=== PATIENT | female | born 1960 | race African-American/Black ===

== ENCOUNTER 2017-06-14 17:50 | Observation (INO) | payer OTHER ==
[2017-06-14 18:14] VITALS: BMI 24.0
[2017-06-14] MEDS ORDERED: PREGABALIN 100 MG CAPSULE PO ONE (19:33)
[2017-06-14] MEDS ORDERED: CYCLOBENZAPRINE HCL 10 MG TABLET (FP) PO ONE (19:33)
[2017-06-14] MEDS ORDERED: ONDANSETRON 4 MG/2 ML VIAL IVPUSH ONE (19:33)
[2017-06-14 19:52] LABS: BASO % 0.3 % (0-2.0); HEMATOCRIT 37.7 % (32.4-45.2); HEMOGLOBIN 12.2 GM/dL (10.7-15.3); LYMPH % 3.1 % (8-40); MCH 29.6 pg (25.7-33.7); MCHC 32.2 g/dl (32.0-36.0); MEAN CELL VOLUME 91.8 fl (80-96); MONO % 3.4 % (3.8-10.2); NEUT % 93.2 % (42.8-82.8); PLATELET COUNT 398 K/MM3 (134-434); RBC 4.11 M/mm3 (3.60-5.2); RDW 12.9 % (11.6-15.6)
[2017-06-14] MEDS ORDERED: PREGABALIN 100 MG CAPSULE ONE (19:52)
[2017-06-14] MEDS ORDERED: ONDANSETRON 4 MG/2 ML VIAL ONE (19:52)
[2017-06-14] MEDS ORDERED: SODIUM CHLORIDE 1,000 ML IV STA (19:52)
[2017-06-14] MEDS ORDERED: CYCLOBENZAPRINE HCL 10 MG TABLET (FP) ONE (19:52)
[2017-06-14 20:19] LABS: ALBUMIN 4.5 g/dl (3.4-5.0); ANION GAP 12 (8-16); BILIRUBIN,TOTAL 0.6 mg/dL (0.2-1.0); BLOOD UREA NITROGEN 25 mg/dL (7-18); CALCIUM 8.1 mg/dL (8.5-10.1); CHLORIDE 99 mmol/L (98-107); CO2 25 mmol/L (21-32); CREATININE 0.9 mg/dL (0.55-1.02); GLUCOSE,RANDOM 172 mg/dL (74-106); POTASSIUM 3.5 mmol/L (3.5-5.1); SGOT/AST 40 U/L (15-37); SGPT/ALT 57 U/L (12-78); SODIUM 136 mmol/L (136-145)
[2017-06-14 20:22] LABS: ALK PHOS 118 U/L (45-117)
[2017-06-14 20:27] LABS: URINE APPEARANCE SLCLOUDY; URINE BILIRUBIN NEGATIVE (NEGATIVE); URINE BLOOD NEGATIVE (NEGATIVE); URINE COLOR AMBER; URINE GLUCOSE (UA) 2+ (NEGATIVE); URINE KETONE 2+ (NEGATIVE); URINE NITRITE NEGATIVE (NEGATIVE)
[2017-06-14 20:30] LABS: URINE LEUK ESTERASE 2+ (NEGATIVE); URINE PROTEIN 2+ (NEGATIVE)
[2017-06-14 20:32] LABS: EPI CELLS RARE /HPF (FEW); URINE MUCUS FEW
--- NOTE | 2017-06-14 20:32 | PDOC ---
Attending Attestation - Resident Resident Name: TiffanieJorge - ED Attending Attestation I have performed the following: I have examined & evaluated the patient, The case was reviewed & discussed with the resident, I agree w/resident's findings & plan - HPI HPI: 06/14/17 20:32 Pt comes with stomach virus - Physicial Exam PE: 06/14/17 22:06 Agree with resident exam. Pt has MSCP Pt appears weak. - Medical Decision Making 06/14/17 22:06 Trop +; she will have EKG, CXR, admission to tele. 06/15/17 00:07 She was given asa, plavix, metorpolol and started on a heparin drip. She has been admitted to tele unit. 06/15/17 00:07 Pt received rocephin for her UTI
--- NOTE | 2017-06-14 20:52 | PDOC ---
History of Present Illness - General Chief Complaint: Nausea/Vomiting Stated Complaint: NAUSEA,BACK PAIN Time Seen by Provider: 06/14/17 19:19 History Source: Patient - History of Present Illness Initial Comments: 06/14/17 20:33 57F with hx of HTN and DM2 presenting with nausea, vomiting, abdominal pain and leg cramps since this morning when she went to [employer] and forgot her medication. Since this morning, multiple episodes of abdominal pain which are new, the back pain and leg cramps are chronic for her. No headache, chest pain sob, dysuria. 06/14/17 20:54 Past History - Past Medical History Allergies/Adverse Reactions: Allergies Allergy/AdvReac Type Severity Reaction Status Date / Time codeine Allergy Verified 06/14/17 18:15 shellfish derived Allergy Swelling Verified 06/14/17 18:15 Home Medications: Ambulatory Orders Cephalexin Monohydrate [Keflex -] 500 mg PO BID #14 capsule 06/14/17 Cyclobenzaprine HCl 5 mg PO DAILY PRN 06/14/17 Liraglutide [Victoza -] 1.8 mg SQ DAILY@0700 06/14/17 Metformin HCl [Metformin HCl ER] 500 mg PO BID 06/14/17 Olmesartan Medoxomil [Benicar (Nf)] 40 mg PO DAILY 06/14/17 Pregabalin [Lyrica -] 50 mg PO BID 06/14/17 Ranitidine HCl 150 mg PO BID 06/14/17 COPD: No Diabetes: Yes HTN: Yes - Surgical History Gastric Stapling: No (GASTRIC BYPASS) - Suicide/Smoking/Psychosocial Hx Smoking History: Never smoked Hx Alcohol Use: No Drug/Substance Use Hx: No Review of Systems - Review of Systems Able to Perform ROS?: Yes Is the patient limited Monegasque proficient: No Constitutional: No: Symptoms Reported HEENTM: No: Symptoms Reported Respiratory: No: Symptoms reported Cardiac (ROS): No: Symptoms Reported ABD/GI: Yes: See HPI : No: Symptoms Reported Musculoskeletal: Yes: See HPI Integumentary: No: Symptoms Reported Neurological: No: Symptoms reported Endocrine: No: Symptoms Reported All Other Systems: Reviewed and Negative *Physical Exam - Vital Signs Last Vital Signs Temp Pulse Resp BP Pulse Ox 67 20 152/86 100 06/14/17 18:09 06/14/17 18:09 06/14/17 18:09 06/14/17 18:09 - Physical Exam General Appearance: Yes: Nourished, Appropriately Dressed. No: Apparent Distress HEENT: positive: EOMI, SUYAPA, Normal ENT Inspection Respiratory/Chest: positive: Lungs Clear, Normal Breath Sounds. negative: Chest Tender Cardiovascular: positive: Regular Rhythm, Regular Rate, S1, S2 Gastrointestinal/Abdominal: positive: Tender (all over abdomen), Soft Extremity: positive: Other (tense left leg) Neurologic: positive: Alert, Normal Mood/Affect, Normal Response ED Treatment Course - LABORATORY CBC & Chemistry Diagram: 06/14/17 19:45 06/14/17 19:45 - ADDITIONAL ORDERS Additional order review: Laboratory Results 06/14/17 20:22 Urine Color Isabel Urine Appearance Slcloudy Urine pH 6.0 Ur Specific [place] 1.031 Urine Protein 2+ H Urine Glucose (UA) 2+ H Urine Ketones 2+ H Urine Blood Negative Urine Nitrite Negative Urine Bilirubin Negative Urine Urobilinogen 2.0 H Ur Leukocyte Esterase 2+ H 06/14/17 19:45 RBC 4.11 MCV 91.8 MCHC 32.2 RDW 12.9 MPV 8.0 Neutrophils % 93.2 H Lymphocytes % 3.1 L Monocytes % 3.4 L Eosinophils % 0.0 Basophils % 0.3 - Medications Given in the ED: ED Medications Discontinued Medications Generic Name Dose Route Start Last Admin Trade Name Freq PRN Reason Stop Dose Admin Cyclobenzaprine HCl 10 mg 06/14/17 19:33 06/14/17 20:01 Flexeril - PO 06/14/17 19:34 10 mg ONCE ONE Administration Ondansetron HCl 4 mg 06/14/17 19:33 06/14/17 20:01 Zofran Injection IVPUSH 06/14/17 19:34 4 mg ONCE ONE Administration Pregabalin 200 mg 06/14/17 19:33 06/14/17 20:01 Lyrica - PO 06/14/17 19:34 200 mg ONCE ONE Administration Medical Decision Making - Medical Decision Making 06/14/17 21:01 Patient given her lyrica and cyclobenzaprine 06/14/17 21:03 urine positive for leuks est. Patient treated with keflex. feelzach manny. *DC/Admit/Observation/Transfer Diagnosis at time of Disposition: UTI (urinary tract infection) - Discharge Dispostion Disposition: HOME Admit: No - Prescriptions Prescriptions: Cephalexin Monohydrate [Keflex -] 500 mg PO BID #14 capsule - Referrals - Patient Instructions Printed Discharge Instructions: DI for Urinary Tract Infection (UTI) Additional Instructions: Come back to ER for any new, worsening or concerning symptoms. Use prescription as directed and follow up with your primary doctor within next 3-4 days. - Post Discharge Activity
[2017-06-14] MEDS ORDERED: CEPHALEXIN MONOHYDRATE 500 MG CAPSULE (UD) PO ONE (21:02)
[2017-06-14] MEDS ORDERED: CEPHALEXIN MONOHYDRATE 250 MG CAPSULE (FP) ONE (21:13)
[2017-06-14] MEDS ORDERED: CLOPIDOGREL BISULFATE 300 MG TABLET PO ONE (21:37)
[2017-06-14] MEDS ORDERED: ASPIRIN 81 MG CHEWABLE TABLETS PO ONE (21:37)
[2017-06-14] MEDS ORDERED: METOPROLOL TARTRATE 50 MG TABLET (FP) PO ONE (21:38)
[2017-06-14] MEDS ORDERED: METOPROLOL TARTRATE 25 MG TABLET (FP) ONE (21:53)
[2017-06-14] MEDS ORDERED: ASPIRIN 81 MG CHEWABLE TABLETS ONE (21:53)
[2017-06-14] MEDS ORDERED: CLOPIDOGREL BISULFATE 300 MG TABLET ONE (21:53)
[2017-06-14] MEDS ORDERED: HEPARIN NA (PORCINE) 5,000 UNITS/ML 1ML VIAL IVPUSH ONE (22:07)
[2017-06-14] MEDS ORDERED: HEPARIN NA (PORCINE) 5,000 UNITS/ML 1ML VIAL IVPUSH PRN (22:07)
[2017-06-14] MEDS ORDERED: HEPARIN SOD,PORK IN 0.45% NACL 25,000 UNIT/500 ML INFUS.BAG IVPB SCH (22:15)
[2017-06-14] MEDS ORDERED: HEPARIN NA (PORCINE) 5,000 UNITS/ML 1ML VIAL ONE (22:26)
--- NOTE | 2017-06-14 22:33 | PDOC ---
*Physical Exam - Vital Signs Last Vital Signs Temp Pulse Resp BP Pulse Ox 67 20 152/86 100 06/14/17 18:09 06/14/17 18:09 06/14/17 18:09 06/14/17 18:09 ED Treatment Course - LABORATORY CBC & Chemistry Diagram: 06/14/17 19:45 06/14/17 19:45 - ADDITIONAL ORDERS Additional order review: Laboratory Results 06/14/17 06/14/17 20:22 19:45 Sodium 136 Potassium 3.5 Chloride 99 Carbon Dioxide 25 Anion Gap 12 BUN 25 H Creatinine 0.9 Creat Clearance w eGFR > 60 Random Glucose 172 H Calcium 8.1 L Total Bilirubin 0.6 AST 40 H ALT 57 Alkaline Phosphatase 118 H Creatine Kinase 161 Creatine Kinase Index 1.3 CK-MB (CK-2) 2.156 Troponin I 0.07 H Total Protein 8.0 Albumin 4.5 Urine Color Isabel Urine Appearance Slcloudy Urine pH 6.0 Ur Specific [place] 1.031 Urine Protein 2+ H Urine Glucose (UA) 2+ H Urine Ketones 2+ H Urine Blood Negative Urine Nitrite Negative Urine Bilirubin Negative Urine Urobilinogen 2.0 H Ur Leukocyte Esterase 2+ H Urine WBC (Auto) 10 Urine RBC (Auto) 7 Ur Epithelial Cells Rare Urine Mucus Few 06/14/17 19:45 RBC 4.11 MCV 91.8 MCHC 32.2 RDW 12.9 MPV 8.0 Neutrophils % 93.2 H Lymphocytes % 3.1 L Monocytes % 3.4 L Eosinophils % 0.0 Basophils % 0.3 - Medications Given in the ED: ED Medications Discontinued Medications Generic Name Dose Route Start Last Admin Trade Name Kulwinder PRN Reason Stop Dose Admin Aspirin 162 mg 06/14/17 21:37 06/14/17 21:59 Asa - PO 06/14/17 21:38 162 mg ONCE ONE Administration Cephalexin HCl 500 mg 06/14/17 21:02 06/14/17 21:19 Keflex - PO 06/14/17 21:03 500 mg ONCE ONE Administration Clopidogrel Bisulfate 600 mg 06/14/17 21:37 06/14/17 21:59 Plavix - PO 06/14/17 21:38 600 mg ONCE ONE Administration Cyclobenzaprine HCl 10 mg 06/14/17 19:33 06/14/17 20:01 Flexeril - PO 06/14/17 19:34 10 mg ONCE ONE Administration Sodium Chloride 1,000 mls @ 1,000 mls/hr 06/14/17 19:52 06/14/17 20:01 Normal Saline - IV 06/14/17 20:51 1,000 mls/hr ASDIR STA Administration Metoprolol Tartrate 25 mg 06/14/17 21:38 06/14/17 21:59 Lopressor - PO 06/14/17 21:39 25 mg ONCE ONE Administration Ondansetron HCl 4 mg 06/14/17 19:33 06/14/17 20:01 Zofran Injection IVPUSH 06/14/17 19:34 4 mg ONCE ONE Administration Pregabalin 200 mg 06/14/17 19:33 06/14/17 20:01 Lyrica - PO 06/14/17 19:34 200 mg ONCE ONE Administration *DC/Admit/Observation/Transfer Diagnosis at time of Disposition: NSTEMI (non-ST elevated myocardial infarction) - Discharge Dispostion Admit: Yes - Prescriptions Prescriptions: Cephalexin Monohydrate [Keflex -] 500 mg PO BID #14 capsule - Referrals - Patient Instructions Additional Instructions: Come back to ER for any new, worsening or concerning symptoms. Use prescription as directed and follow up with your primary doctor within next 3-4 days. - Post Discharge Activity
--- NOTE | 2017-06-14 22:59 | HP ---
CHIEF COMPLAINT: N/v, back pain PCP: Non-staff HISTORY OF PRESENT ILLNESS: 57 yo woman w/ pmh of HTN, DM2, GERD who presents with abdominal pain, N/V earlier this afternoon in the setting of persistent, intermittent atypical chest pain for the past 3 months. Pt endorses a significant pmh of "enlarged heart" and atypical chest pain for the past 2-3 months. Pt describes the pain as sharp, occurring in the R subcostal region with radiation to midscapular region, not associated with exercise, position or feeding. Pt states this morning she felt a new L sided CP similar to the R-sided one previously described when she was at [employer]. She states she felt lightheaded at the time as well. She states that she took tylenol and felt some symptomatic relief. After [employer], the pt states she took a train home and began having severe nausea and abdominal pain. At home, she vomitted multiple times and decided to come to the ED. Pt denies any fever/chills, FORREST, vision changes, chest tightness , SOB, dyspnea, PND, [place] or diarrhea/constipation. Pt also states she has been experiencing burning on urination recently, but has never been diagnosed with a UTI; denies any hematuria or pyuria. Pt states she had a stress test early last year, which was normal and has received an ECHO sometime in the last few months , which was normal. She currently takes no cardiac medication. In addition, pt has BL chronic leg cramping for which she takes cyclobenzaprine and sees a neurologist regularly. Her commercial director is Dr. Eller. Her family hx is significant for father with 5 prior MIs, passing away in his later 50s, as well as a sister who two month later from an [place]. Pt denies any hx of drug use or anxiety attacks. ER course was notable for: (1)WBC 15, left shift (2)UA + leuk esterase (3)Trop 0.07 Recent Travel: None PAST MEDICAL HISTORY: DM2 HTN GERD Chronic leg pain PAST SURGICAL HISTORY: Gastric Bypass Social History: Smoking: No Alcohol: No Drugs: No Family History: [place] Allergies codeine Allergy (Verified 06/14/17 18:15) shellfish derived Allergy (Verified 06/14/17 18:15) Swelling HOME MEDICATIONS: Home Medications Medication Instructions Recorded Cephalexin Monohydrate [Keflex -] 500 mg PO BID #14 capsule 06/14/17 Cyclobenzaprine HCl 5 mg PO DAILY PRN 06/14/17 Liraglutide [Victoza -] 1.8 mg SQ DAILY@0700 06/14/17 Metformin HCl [Metformin HCl ER] 500 mg PO BID 06/14/17 Olmesartan Medoxomil [Benicar (Nf)] 40 mg PO DAILY 06/14/17 Pregabalin [Lyrica -] 50 mg PO BID 06/14/17 Ranitidine HCl 150 mg PO BID 06/14/17 REVIEW OF SYSTEMS CONSTITUTIONAL: Absent: fever, chills, diaphoresis, generalized weakness, malaise, loss of appetite, weight change HEENT: Absent: rhinorrhea, nasal congestion, throat pain, throat swelling, difficulty swallowing, mouth swelling, ear pain, eye pain, visual changes CARDIOVASCULAR: chest pain Absent: syncope, palpitations, irregular heart rate, lightheadedness, peripheral edema RESPIRATORY: Absent: cough, shortness of breath, dyspnea with exertion, orthopnea, wheezing, stridor, hemoptysis GASTROINTESTINAL: abdominal pain, nausea, vomiting Absent: abdominal distension, diarrhea, constipation, melena, hematochezia GENITOURINARY: Absent: dysuria, frequency, urgency, hesitancy, hematuria, flank pain, genital pain MUSCULOSKELETAL: Leg pain, back pain Absent: myalgia, arthralgia, joint swelling, neck pain SKIN: Absent: rash, itching, pallor HEMATOLOGIC/IMMUNOLOGIC: Absent: easy bleeding, easy bruising, lymphadenopathy, frequent infections ENDOCRINE: Absent: unexplained weight gain, unexplained weight loss, heat intolerance, cold intolerance NEUROLOGIC: Absent: headache, focal weakness or paresthesias, dizziness, unsteady gait, seizure, mental status changes, bladder or bowel incontinence PSYCHIATRIC: Absent: anxiety, depression, suicidal or homicidal ideation, hallucinations. PHYSICAL EXAMINATION Vital Signs - 24 hr 06/14/17 18:09 Pulse Rate 67 Respiratory 20 Rate Blood Pressure 152/86 O2 Sat by Pulse 100 Oximetry (%) GENERAL: Awake, alert, and fully oriented, in no acute distress. HEAD: Normal with no signs of trauma. EYES: Pupils equal, round and reactive to light, extraocular movements intact, sclera anicteric, conjunctiva clear. No lid lag. EARS, NOSE, THROAT: Ears normal, nares patent, oropharynx clear without exudates. Moist mucous membranes. NECK: Normal range of motion, supple without lymphadenopathy, JVD, or masses. LUNGS: Breath sounds equal, clear to auscultation bilaterally. No wheezes, and no crackles. No accessory muscle use. HEART: Pain on palpation of R subcostal region, 2-3cm lateral to RLSB. Regular rate and rhythm, normal S1 and S2 without murmur, rub or gallop. ABDOMEN: +suprapubic tenderness. Soft, not distended, normoactive bowel sounds, no guarding, no rebound, no masses. No hepatomegaly or splenomegaly. MUSCULOSKELETAL: Normal range of motion at all joints. No bony deformities or tenderness. No CVA tenderness. UPPER EXTREMITIES: 2+ pulses, warm, well-perfused. No cyanosis. No clubbing. No peripheral edema. LOWER EXTREMITIES: 2+ pulses, warm, well-perfused. No calf tenderness. No peripheral edema. NEUROLOGICAL: Cranial nerves II-XII intact. Normal speech. Normal gait. PSYCHIATRIC: Cooperative. Good eye contact. Appropriate mood and affect. SKIN: Warm, dry, normal turgor, no rashes or lesions noted, normal capillary refill. Laboratory Results - last 24 hr CBC, [facility] 06/14/17 19:45 06/14/17 19:45 06/14/17 06/14/17 06/14/17 19:45 19:45 20:22 WBC 15.0 H RBC 4.11 Hgb 12.2 Hct 37.7 MCV 91.8 MCH 29.6 MCHC 32.2 RDW 12.9 Plt Count 398 MPV 8.0 Neutrophils % 93.2 H Lymphocytes % 3.1 L Monocytes % 3.4 L Eosinophils % 0.0 Basophils % 0.3 Sodium 136 Potassium 3.5 Chloride 99 Carbon Dioxide 25 Anion Gap 12 BUN 25 H Creatinine 0.9 Creat Clearance w eGFR > 60 Random Glucose 172 H Calcium 8.1 L Total Bilirubin 0.6 AST 40 H ALT 57 Alkaline Phosphatase 118 H Creatine Kinase 161 Creatine Kinase Index 1.3 CK-MB (CK-2) 2.156 Troponin I 0.07 H Total Protein 8.0 Albumin 4.5 Urine Color Isabel Urine Appearance Slcloudy Urine pH 6.0 Ur Specific [place] 1.031 Urine Protein 2+ H Urine Glucose (UA) 2+ H Urine Ketones 2+ H Urine Blood Negative Urine Nitrite Negative Urine Bilirubin Negative Urine Urobilinogen 2.0 H Ur Leukocyte Esterase 2+ H Urine WBC (Auto) 10 Urine RBC (Auto) 7 Ur Epithelial Cells Rare Urine Mucus Few EKG - NSR, NAD, Rate 83, QTC 528. Q-waves in I, AVLs w/ TWIs. No CXR ASSESSMENT/PLAN: 57 yo woman w/ pmh of HTN, DM2 who presents with N/V, abdominal pain since this AM in the setting of intermittent anterior chest pain for the past three months. Now found with q waves/TWIs on EKG in lateral leads and elevated trops suggestive of NSTEMI. #NSTEMI - Trop 0.07; EKG with Q-wave, TWIs in AVL/lead I - d/c heparin gtt - Trend trops - Consider cardiology consult if trops uptrending - Nitroglycerin prn - Echo - Tylenol for pain control - O2 tx PRN; maintain O2 sat >97% - ASA 81mg - BB, CARL-I, Statin as outpt - Will require repeat stress test as outpt - Serial EKGs - CXR - IVFs #UTI - WBC ~15, + leuk esterase on UA - f/u urine cultures - Rocephin 1mg IV qD - Trend WBC, fever #HTN - C/w home benicar #DM2 - Hold metformin as cardiosuppresive - C/w victoza -lyrica for neuropathy - ISS - BGM Q4h - A1C #Chronic leg pain - c/w home Cyclobenzaprine #GERD -Ranitidine PPX Heparin subq Ranitidine FEN NS 75cc/hr Daily BMPs Diabetic diet Plan discussed with attending, Dr. Kyle Gallagher, PGY1 Visit type - Emergency Visit Emergency Visit: Yes ED Registration Date: 06/14/17 Care time: The patient presented to the Emergency Department on the above date and was hospitalized for further evaluation of their emergent condition. - New Patient This patient is new to me today: Yes Date on this admission: 06/15/17 - Critical Care Critical Care patient: No
[2017-06-14 23:08] LABS: INR 1.04 (0.82-1.09); PROTHROMBIN TIME (PATIENT) 11.8 SEC (9.98-11.88)
[2017-06-15] MEDS ORDERED: METOCLOPRAMIDE HCL INJECTION 10 MG/2 ML VIAL IVPUSH PRN (00:14)
[2017-06-15] MEDS ORDERED: SODIUM CHLORIDE 1,000 ML IV SCH (00:15)
--- NOTE | 2017-06-15 00:17 | PN ---
Teaching Attending Note Name of Resident: Armando Gallagher ATTENDING PHYSICIAN STATEMENT I saw and evaluated the patient. Chart, data,imaging reviewed. I reviewed the resident's note and discussed the case with the resident. I agree with the resident's findings and plan as documented. SUBJECTIVE: 57F with hx of HTN, DM , gastric bypass in 2012, extensive family Hx of cardiac disease, former smoker with atypical chest pain not related to exercise for the last 2 months She reports nausea and vomiting starting 06/14 in the morning, unrelated to any particular event. She has has recent cardiac stress test and echocardiogram with Dr. Eller that she reported as normal. pt given clopidogrel , ASA, heparin drip in ER. Pt also c/o some dysuria. Denied any shortness of breath. OBJECTIVE: Last Vital Signs Temp Pulse Resp BP Pulse Ox 67 20 152/86 100 06/14/17 18:09 06/14/17 18:09 06/14/17 18:09 06/14/17 18:09 General - NAD, aaox3 HEENT- at, nc, moist ora mucosa neck- supple, no jvd or masses cv - s1+s2+ RRR chest- anterior chest pain reproducible Ext-no LE edema HEART score - 5 EKG -nonspecific t wave inversions , nsr, prolonged qtc Abnormal Lab Results 06/14/17 06/14/17 06/14/17 19:45 19:45 20:22 WBC 15.0 H Neutrophils % 93.2 H Lymphocytes % 3.1 L Monocytes % 3.4 L BUN 25 H Random Glucose 172 H Calcium 8.1 L AST 40 H Alkaline Phosphatase 118 H Troponin I 0.07 H Urine Protein 2+ H Urine Glucose (UA) 2+ H Urine Ketones 2+ H Urine Urobilinogen 2.0 H Ur Leukocyte Esterase 2+ H ASSESSMENT AND PLAN: #Atypical chest pain in a 57yo woman with moderate risk factors with acute onset of nausea, vomiting x 1 day. I do not suspect active IA at this time given history of negative cardiac stress test, and that pain is reproducible. May be musculoskeletal in nature. -admit to observation/telemetry -CXR -d/c clopidogrel, heparin drip -c/w ASA -statin -trend troponin -outpatient cardiac stress test and transthoracic echo #Nausea/vomiting - may be related to gastroenteritis -IV fluid hydration -reglan 10mg IV prn if nausea or vomiting #Cystitis -send urine culture -ceftriaxone 1g IV q24hrs #DVT -heparin sc
[2017-06-15] MEDS ORDERED: ACETAMINOPHEN 325 MG TABLET (FP) PO PRN (01:04)
[2017-06-15] MEDS ORDERED: HEPARIN NA (PORCINE) 5,000 UNITS/ML 1ML VIAL SQ SCH (02:00)
[2017-06-15] MEDS: INSULIN SLIDING SCALE (NOVOLOG) 1 VIAL SQ SCH ×3 (02:02→10:05)
[2017-06-15] MEDS ORDERED: CYCLOBENZAPRINE HCL 10 MG TABLET (FP) PO PRN (06:19)
[2017-06-15] MEDS ORDERED: LIRAGLUTIDE 0.6 MG/0.1 ML PEN.INJCTR SQ SCH (07:00)
[2017-06-15 07:07] VITALS: TEMP 97.6
[2017-06-15 08:32] LABS: CHLORIDE 104 mmol/L (98-107); POTASSIUM 4.8 mmol/L (3.5-5.1); SODIUM 139 mmol/L (136-145)
[2017-06-15 08:51] LABS: ALBUMIN 3.2 g/dl (3.4-5.0); ALK PHOS 95 U/L (45-117); ANION GAP 11 (8-16); BILIRUBIN,TOTAL 0.7 mg/dL (0.2-1.0); BLOOD UREA NITROGEN 23 mg/dL (7-18); CALCIUM 8.4 mg/dL (8.5-10.1); CO2 24 mmol/L (21-32); CREATININE 0.7 mg/dL (0.55-1.02); GLUCOSE,RANDOM 80 mg/dL (74-106); MAGNESIUM 2.2 mg/dL (1.8-2.4); PHOSPHOROUS 4.4 mg/dL (2.5-4.9); SGOT/AST 41 U/L (15-37); SGPT/ALT 45 U/L (12-78); TOT PROT 6.8 g/dl (6.4-8.2)
[2017-06-15 09:12] LABS: INR 1.1 (0.82-1.09); PROTHROMBIN TIME (PATIENT) 12.4 SEC (9.98-11.88)
[2017-06-15 09:24] LABS: BASO % 0.4 % (0-2.0); HEMOGLOBIN 10.8 GM/dL (10.7-15.3); LYMPH % 17.2 % (8-40); MCH 29.7 pg (25.7-33.7); MCHC 31.8 g/dl (32.0-36.0); MEAN CELL VOLUME 93.5 fl (80-96); MEAN PLT VOLUME 8.3 fl (7.5-11.1); NEUT % 70.4 % (42.8-82.8); PLATELET COUNT 350 K/MM3 (134-434); RBC 3.63 M/mm3 (3.60-5.2); RDW 12.7 % (11.6-15.6); WHITE BLOOD COUNT 9.7 K/mm3 (4.0-10.0)
[2017-06-15] MEDS ORDERED: PREGABALIN 50 MG CAPSULE ONE (09:42)
[2017-06-15] MEDS ORDERED: VALSARTAN 80 MG TABLET (UD) ONE (09:42)
[2017-06-15] MEDS ORDERED: RANITIDINE HCL 150 MG TABLET (FP) PO SCH (10:00)
[2017-06-15] MEDS ORDERED: VALSARTAN 160 MG TABLET (UD) PO SCH (10:00)
[2017-06-15] MEDS ORDERED: CEFTRIAXONE 1 G/50 ML PREMIX 50 ML IVPB SCH (10:00)
[2017-06-15] MEDS ORDERED: CEFTRIAXONE 1 GM in DEXTROSE 5%-WATER - 50 ML IVPB SCH (10:00)
[2017-06-15] MEDS ORDERED: PREGABALIN 50 MG CAPSULE PO SCH (10:00)
--- NOTE | 2017-06-15 10:25 | EKG ---
Test Reason : Blood Pressure : / mmHG Vent. Rate : 065 BPM Atrial Rate : 065 BPM P-R Int : 194 ms QRS Dur : 112 ms QT Int : 426 ms P-R-T Axes : 047 -14 115 degrees QTc Int : 443 ms NORMAL SINUS RHYTHM LEFT VENTRICULAR HYPERTROPHY WITH REPOLARIZATION ABNORMALITY POSSIBLE LATERAL INFARCT (CITED ON OR BEFORE 14-JUN-2017) ABNORMAL ECG WHEN COMPARED WITH ECG OF 14-JUN-2017 21:51, CRITERIA FOR SEPTAL INFARCT ARE NO LONGER PRESENT Confirmed by AMADA BERGMAN MD ([id number]) on 06/15/2017 10:25:15 AM Referred By: Confirmed By:AMADA BERGMAN MD
--- NOTE | 2017-06-15 10:32 | EKG ---
Test Reason : Blood Pressure : / mmHG Vent. Rate : 083 BPM Atrial Rate : 083 BPM P-R Int : 154 ms QRS Dur : 102 ms QT Int : 450 ms P-R-T Axes : 043 001 104 degrees QTc Int : 528 ms NORMAL SINUS RHYTHM MINIMAL VOLTAGE CRITERIA FOR LVH, MAY BE NORMAL VARIANT SEPTAL INFARCT , AGE UNDETERMINED POSSIBLE LATERAL INFARCT , AGE UNDETERMINED PROLONGED QT ABNORMAL ECG NO PREVIOUS ECGS AVAILABLE Confirmed by AMADA BERGMAN MD ([id number]) on 06/15/2017 10:31:52 AM Referred By: Confirmed By:AMADA BERGMAN MD
--- NOTE | 2017-06-15 12:31 | DS ---
Physical Exam: SUBJECTIVE: Patient seen and examined. Nausea resolved. tolerated most of breakfast. no vomiting episodes today. has been experiecing dysuria and urinary hesitancy for the past week. Denies CP, SOB, fever, chills, C/D. OBJECTIVE: Vital Signs Period Temp Pulse Resp BP Sys/Doty Pulse Ox Last 24 Hr 97.6 F 61-86 16-20 107-152/65-86 96-100 PHYSICAL EXAM GENERAL: The patient is awake, alert, and fully oriented, in no acute distress. HEAD: Normal with no signs of trauma. EYES: PERRL, extraocular movements intact, sclera anicteric, conjunctiva clear. ENT: Ears normal, nares patent, oropharynx clear without exudates, moist mucous membranes. NECK: Trachea midline, full range of motion, supple. LUNGS: Breath sounds equal, clear to auscultation bilaterally, no wheezes, no crackles, no accessory muscle use. HEART: Regular rate and rhythm, S1, S2 without murmur, rub or gallop. ABDOMEN: Soft, nontender, nondistended, normoactive bowel sounds, no guarding, no rebound, no hepatosplenomegaly, no masses. NO CVA tenderness EXTREMITIES: 2+ pulses, warm, well-perfused, no edema. NEUROLOGICAL: Cranial nerves II through XII grossly intact. Normal speech, gait not observed. PSYCH: Normal mood, normal affect. SKIN: Warm, dry, normal turgor, no rashes or lesions noted. LABS Laboratory Results - last 24 hr 06/14/17 06/14/17 06/14/17 19:45 19:45 20:16 WBC 15.0 H RBC 4.11 Hgb 12.2 Hct 37.7 MCV 91.8 MCH 29.6 MCHC 32.2 RDW 12.9 Plt Count 398 MPV 8.0 Neutrophils % 93.2 H Lymphocytes % 3.1 L Monocytes % 3.4 L Eosinophils % 0.0 Basophils % 0.3 PT with INR INR PTT (Actin FS) Sodium 136 Potassium 3.5 Chloride 99 Carbon Dioxide 25 Anion Gap 12 BUN 25 H Creatinine 0.9 Creat Clearance w eGFR > 60 POC Glucometer [phone] Random Glucose 172 H Calcium 8.1 L Phosphorus Magnesium Total Bilirubin 0.6 AST 40 H ALT 57 Alkaline Phosphatase 118 H Creatine Kinase 161 Creatine Kinase Index 1.3 CK-MB (CK-2) 2.156 Troponin I 0.07 H Total Protein 8.0 Albumin 4.5 Urine Color Urine Appearance Urine pH Ur Specific [place] Urine Protein Urine Glucose (UA) Urine Ketones Urine Blood Urine Nitrite Urine Bilirubin Urine Urobilinogen Ur Leukocyte Esterase Urine WBC (Auto) Urine RBC (Auto) Ur Epithelial Cells Urine Mucus 06/14/17 06/14/17 06/15/17 20:22 22:48 01:59 WBC RBC Hgb Hct MCV MCH MCHC RDW Plt Count MPV Neutrophils % Lymphocytes % Monocytes % Eosinophils % Basophils % PT with INR 11.80 INR 1.04 PTT (Actin FS) Sodium Potassium Chloride Carbon Dioxide Anion Gap BUN Creatinine Creat Clearance w eGFR POC Glucometer [phone] Random Glucose Calcium Phosphorus Magnesium Total Bilirubin AST ALT Alkaline Phosphatase Creatine Kinase Creatine Kinase Index CK-MB (CK-2) Troponin I Total Protein Albumin Urine Color Isabel Urine Appearance Slcloudy Urine pH 6.0 Ur Specific [place] 1.031 Urine Protein 2+ H Urine Glucose (UA) 2+ H Urine Ketones 2+ H Urine Blood Negative Urine Nitrite Negative Urine Bilirubin Negative Urine Urobilinogen 2.0 H Ur Leukocyte Esterase 2+ H Urine WBC (Auto) 10 Urine RBC (Auto) 7 Ur Epithelial Cells Rare Urine Mucus Few 06/15/17 06/15/17 06/15/17 04:10 06:29 07:30 WBC RBC Hgb Hct MCV MCH MCHC RDW Plt Count MPV Neutrophils % Lymphocytes % Monocytes % Eosinophils % Basophils % PT with INR INR PTT (Actin FS) Sodium 139 Potassium 4.8 Chloride 104 Carbon Dioxide 24 Anion Gap 11 BUN 23 H Creatinine 0.7 Creat Clearance w eGFR > 60 POC Glucometer 71.12481 Random Glucose 80 Calcium 8.4 L Phosphorus 4.4 Magnesium 2.2 Total Bilirubin 0.7 AST 41 H ALT 45 D Alkaline Phosphatase 95 D Creatine Kinase Creatine Kinase Index CK-MB (CK-2) Troponin I 0.07 H 0.08 H Total Protein 6.8 Albumin 3.2 L D Urine Color Urine Appearance Urine pH Ur Specific [place] Urine Protein Urine Glucose (UA) Urine Ketones Urine Blood Urine Nitrite Urine Bilirubin Urine Urobilinogen Ur Leukocyte Esterase Urine WBC (Auto) Urine RBC (Auto) Ur Epithelial Cells Urine Mucus 06/15/17 06/15/17 06/15/17 08:36 08:36 08:36 WBC 9.7 D RBC 3.63 Hgb 10.8 D Hct 34.0 MCV 93.5 MCH 29.7 MCHC 31.8 L RDW 12.7 Plt Count 350 MPV 8.3 Neutrophils % 70.4 D Lymphocytes % 17.2 D Monocytes % 10.0 D Eosinophils % 2.0 D Basophils % 0.4 PT with INR 12.40 H INR 1.10 PTT (Actin FS) 69.7 H Sodium Potassium Chloride Carbon Dioxide Anion Gap BUN Creatinine Creat Clearance w eGFR POC Glucometer Random Glucose Calcium Phosphorus Magnesium Total Bilirubin AST ALT Alkaline Phosphatase Creatine Kinase Creatine Kinase Index CK-MB (CK-2) Troponin I Total Protein Albumin Urine Color Urine Appearance Urine pH Ur Specific [place] Urine Protein Urine Glucose (UA) Urine Ketones Urine Blood Urine Nitrite Urine Bilirubin Urine Urobilinogen Ur Leukocyte Esterase Urine WBC (Auto) Urine RBC (Auto) Ur Epithelial Cells Urine Mucus 06/15/17 11:46 WBC RBC Hgb Hct MCV MCH MCHC RDW Plt Count MPV Neutrophils % Lymphocytes % Monocytes % Eosinophils % Basophils % PT with INR INR PTT (Actin FS) Sodium Potassium Chloride Carbon Dioxide Anion Gap BUN Creatinine Creat Clearance w eGFR POC Glucometer [phone] Random Glucose Calcium Phosphorus Magnesium Total Bilirubin AST ALT Alkaline Phosphatase Creatine Kinase Creatine Kinase Index CK-MB (CK-2) Troponin I Total Protein Albumin Urine Color Urine Appearance Urine pH Ur Specific [place] Urine Protein Urine Glucose (UA) Urine Ketones Urine Blood Urine Nitrite Urine Bilirubin Urine Urobilinogen Ur Leukocyte Esterase Urine WBC (Auto) Urine RBC (Auto) Ur Epithelial Cells Urine Mucus HOSPITAL COURSE: Date of Admission:06/14/17 Date of Discharge: 06/15/17 Admitting diagnosis: UTI, abnormal EKG Pre hospital course 57 yo woman w/ pmh of HTN, DM2, GERD who presents with abdominal pain, N/V earlier this afternoon in the setting of persistent, intermittent atypical chest pain for the past 3 months. Pt endorses a significant pmh of "enlarged heart" and atypical chest pain for the past 2-3 months. Pt describes the pain as sharp, occurring in the R subcostal region with radiation to midscapular region, not associated with exercise, position or feeding. Pt states this morning she felt a new L sided CP similar to the R-sided one previously described when she was at [facility]. She states she felt lightheaded at the time as well. She states that she took tylenol and felt some symptomatic relief. After [facility], the pt states she took a train home and began having severe nausea and abdominal pain. At home, she vomitted multiple times and decided to come to the ED. Pt denies any fever/chills, FORREST, vision changes, chest tightness , SOB, dyspnea, PND, [place] or diarrhea/constipation. Pt also states she has been experiencing burning on urination recently, but has never been diagnosed with a UTI; denies any hematuria or pyuria. Pt states she had a stress test early last year, which was normal and has received an ECHO sometime in the last few months , which was normal. She currently takes no cardiac medication. In addition, pt has BL chronic leg cramping for which she takes cyclobenzaprine and sees a neurologist regularly. 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 Her family hx is significant for father with 5 prior MIs, passing away in his later 50s, as well as a sister who two month later from an [place]. Pt denies any hx of drug use or anxiety attacks. Subsequent hospital course Tele observation. troponin ws noted to be 0.07 in the Er and was asa/plavix loaded and started on heparin ggt. EKG showed TWI in lead I and aVL. UA was + UTI and started on ceftriaxone. symptoms resolved. tolerated diet. cardiac enzymes trended (0.07-0.07 and 0.08) spoke with marine electrician apprentice, Dr Melchor Eller. Had Normal persantine Stress test in August 2016. Echo showing LVH, baseline EKG same as here. discussed case and agreed likely not cardiac. agreed with plan. d/ c pt on abx to complete 1 week course. Minutes to complete discharge: 40 Discharge Summary Reason For Visit: NON-ST ELEVATION (NSTEMI) MYCARDIAL INFRACTION Current Active Problems UTI (urinary tract infection) (Acute) EKG, abnormal (Chronic) - Instructions Diet, Activity, Other Instructions: You were admitted to the hospital due to your symptoms. You were found to have a UTI and were started on medications. Continue to take this medication tomorrow (you received your first dose in the hospital today). Take until completed even if your symptoms resolve. Follow up with your primary care doctor this week Follow up with Dr Eller at your next regular scheduled appointment in August. You can make an earlier appointment if you desire Return to the Er if you develop chest pain or fever (Temp >101) Referrals: STAFF,NOT ON [Primary Care Provider] - - Home Medications Comprehensive Discharge Medication List: Ambulatory Orders Cephalexin Monohydrate [Keflex -] 500 mg PO BID #14 capsule 06/14/17 Cyclobenzaprine HCl 5 mg PO DAILY PRN 06/14/17 Liraglutide [Victoza -] 1.8 mg SQ DAILY@0700 06/14/17 Metformin HCl [Metformin HCl ER] 500 mg PO BID 06/14/17 Olmesartan Medoxomil [Benicar (Nf)] 40 mg PO DAILY 06/14/17 Pregabalin [Lyrica -] 50 mg PO BID 06/14/17 Ranitidine HCl 150 mg PO BID 06/14/17 This patient is new to me today: Yes Date on this admission: 06/15/17 Emergency Visit: Yes ED Registration Date: 06/14/17 Care time: The patient presented to the Emergency Department on the above date and was hospitalized for further evaluation of their emergent condition. Critical Care patient: No - Discharge Referral Referred to [facility] No
[2017-06-15 13:52] VITALS: BP 126/75; PULSE 63
== END 2017-06-15 13:58 | disposition home or self-care (01) ==
LOC: JER 17:50 → JERBED 22:33
PROVIDERS: ADMIT Internal Medicine; ATTEND Internal Medicine
PROC: 3E033GC Introduction of Other Therapeutic Substance into Peripheral Vein, Percutaneous Approach (ICD-10-PCS; principal; 2017-06-14)
PROC: 3E013GC Introduction of Other Therapeutic Substance into Subcutaneous Tissue, Percutaneous Approach (ICD-10-PCS; 2017-06-14)
PROC: 3E0337Z Introduction of Electrolytic and Water Balance Substance into Peripheral Vein, Percutaneous Approach (ICD-10-PCS; 2017-06-14)
DX: I21.4 Non-ST elevation (NSTEMI) myocardial infarction (principal); N39.0 Urinary tract infection, site not specified; I10 Essential (primary) hypertension; E11.9 Type 2 diabetes mellitus without complications; K21.9 Gastro-esophageal reflux disease without esophagitis; M79.605 Pain in left leg; M79.604 Pain in right leg; G89.29 Other chronic pain; R94.31 Abnormal electrocardiogram [ECG] [EKG]; Z91.013 Allergy to seafood; Z88.5 Allergy status to narcotic agent; Z79.84 Long term (current) use of oral hypoglycemic drugs; Z98.84 Bariatric surgery status; Z87.891 Personal history of nicotine dependence
CPT/HCPCS: 36415; 71045-TC; 71046-TC; 80053; 81003; 81015; 82550; 82553; 82962; 83735; 84100; 84484; 85025; 85610; 85730; 87086; 93005; 93010; 93306-TC; 99285-25; G0378; J1644

== ENCOUNTER 2019-02-13 01:16 | Observation (INO) | payer OTHER | END 2019-02-15 13:55 | disposition home or self-care (01) | LOC: JER 01:16 → JERBED 07:40 → J4S 10:09 → JERBED 10:09 → J4S 07:40 ==

== ENCOUNTER 2020-09-28 10:03 | Emergency (ER) | payer OTHER ==
[2020-09-28] MEDS ORDERED: LACTATED RINGERS SOLUTION 1000 ML INFUS.BAG IV ONE ×2 (10:33→14:04)
[2020-09-28] MEDS ORDERED: FAMOTIDINE 20 MG/50 ML IVPB 20 MG/50 ML MG IVPB ONE ×2 (10:34→10:48)
[2020-09-28] MEDS ORDERED: ONDANSETRON 4 MG/2 ML VIAL IVPUSH ONE (10:34)
[2020-09-28] MEDS ORDERED: ACETAMINOPHEN 1000 MG/100 ML VIAL (NON FORMULARY) IVPB ONE (10:35)
[2020-09-28] MEDS ORDERED: morphine CARPU-JECT 4 MG/1 ML DISP.SYRIN IVPUSH ONE ×2 (10:40→11:13)
[2020-09-28 10:45] VITALS: BMI 26.9
[2020-09-28] MEDS ORDERED: ACETAMINOPHEN INJECTION 100 ML IVPB ONE (10:48)
[2020-09-28] MEDS ORDERED: morphine SULFATE 4 MG/ML VIAL ONE ×2 (10:48→13:32)
[2020-09-28] MEDS ORDERED: ONDANSETRON 4 MG/2 ML VIAL ONE (10:50)
[2020-09-28 11:11] LABS: BASO % 1.2 % (0-2.0); EOS % 1.5 % (0-4.5); HEMATOCRIT 32.7 % (32.4-45.2); HEMOGLOBIN 10.6 GM/dL (10.7-15.3); LYMPH % 29.5 % (8-40); MCH 29.6 pg (25.7-33.7); MCHC 32.6 g/dl (32.0-36.0); MEAN CELL VOLUME 91.1 fl (80-96); MEAN PLT VOLUME 8.3 fl (7.5-11.1); MONO % 6.1 % (3.8-10.2); NEUT % 61.7 % (42.8-82.8); PLATELET COUNT 411 K/MM3 (134-434); RBC 3.59 M/mm3 (3.60-5.2); RDW 13.5 % (11.6-15.6); WHITE BLOOD COUNT 4.6 K/mm3 (4.0-10.0)
[2020-09-28 11:18] LABS: INR 0.94 (0.83-1.09); PROTHROMBIN TIME (PATIENT) 11.6 SEC (9.7-13.0)
[2020-09-28 11:21] LABS: ACTIVATED PTT 29.6 SECONDS (25.2-36.5)
[2020-09-28 11:28] LABS: ALBUMIN 3.8 g/dl (3.4-5.0); BLOOD UREA NITROGEN 20.6 mg/dL (7-18); CALCIUM 9.4 mg/dL (8.5-10.1)
[2020-09-28 11:30] LABS: CREATININE 0.9 mg/dL (0.55-1.3)
[2020-09-28 11:31] LABS: BILIRUBIN,TOTAL 0.7 mg/dL (0.2-1)
[2020-09-28 11:33] LABS: TOT PROT 7.7 g/dl (6.4-8.2)
[2020-09-28 11:34] LABS: LACTIC ACID 4.8 mmol/L (0.4-2.0)
[2020-09-28] MEDS ORDERED: HYDROmorphone HCL CARPU-JECT 2 MG/1 ML DISP.SYRIN IVPUSH ONE (14:44)
[2020-09-28] MEDS ORDERED: HYDROmorphone HCl 2 MG/ML VIAL ONE (14:54)
[2020-09-28] MEDS ORDERED: LACTATED RINGERS SOLUTION 1,000 ML/1,000 ML INFUS.BAG IV SCH (15:00)
[2020-09-28 16:34] LABS: LACTIC ACID 4.3 mmol/L (0.4-2.0)
[2020-09-28 16:55] VITALS: BP 146/62; PULSE 73; TEMP 97.1
== END 2020-09-28 18:00 | disposition short-term general hospital (02) ==
LOC: JER 10:03
PROC: 3E033NZ Introduction of Analgesics, Hypnotics, Sedatives into Peripheral Vein, Percutaneous Approach (ICD-10-PCS; principal; 2020-09-28)
PROC: 3E033GC Introduction of Other Therapeutic Substance into Peripheral Vein, Percutaneous Approach (ICD-10-PCS; 2020-09-28)
DX: K56.609 Unspecified intestinal obstruction, unspecified as to partial versus complete obstruction (principal)
CPT/HCPCS: 36415; 71045-TC-FY; 74177-TC; 80053; 83605; 83690; 84484; 85025; 85610; 85730; 86850; 86900; 86901; 93005; 93010; 99285-25; C9803; J0131; Q9967; U0003; U0005

== ENCOUNTER 2022-10-31 02:32 | Inpatient (IN) | payer OTHER ==
[2022-10-31] MEDS ORDERED: SODIUM CHLORIDE 0.9% 1000 ML INFUS.BAG IV ONE (02:52)
[2022-10-31 03:21] LABS: BASO % 0.5 % (0-2.0); EOS % 0.6 % (0-4.5); HEMATOCRIT 22.4 % (32.4-45.2); HEMOGLOBIN 7.3 GM/dL (10.7-15.3); LYMPH % 17.6 % (8-40); MCH 30.6 pg (25.7-33.7); MCHC 32.8 g/dl (32.0-36.0); MEAN CELL VOLUME 93.5 fl (80-96); MEAN PLT VOLUME 7.6 fl (7.5-11.1); NEUT % 75.3 % (42.8-82.8); PLATELET COUNT 404 10^3/uL (134-434); RBC 2.39 M/mm3 (3.60-5.2); RDW 12.8 % (11.6-15.6); WHITE BLOOD COUNT 14.3 K/mm3 (4.0-10.0)
[2022-10-31 03:32] LABS: INR 1.1 (0.83-1.09); PROTHROMBIN TIME (PATIENT) 12.8 SEC (9.7-13.0)
[2022-10-31 03:33] LABS: POTASSIUM 4.8 mmol/L (3.5-5.1)
[2022-10-31 03:34] LABS: ACTIVATED PTT 23.1 SECONDS (25.2-36.5)
[2022-10-31 03:35] LABS: CALCIUM 8.2 mg/dL (8.5-10.1)
[2022-10-31 03:36] LABS: ALBUMIN 3.1 g/dl (3.4-5.0); BLOOD UREA NITROGEN 30.5 mg/dL (7-18); MAGNESIUM 2.3 mg/dL (1.8-2.4)
[2022-10-31 03:39] LABS: CREATININE 0.8 mg/dL (0.55-1.3)
[2022-10-31 03:40] LABS: TOT PROT 6.2 g/dl (6.4-8.2)
[2022-10-31 03:41] LABS: BILIRUBIN,TOTAL 0.3 mg/dL (0.2-1)
[2022-10-31] MEDS ORDERED: PANTOPRAZOLE SODIUM 40 MG VIAL IVPUSH ONE ×2 (05:20→06:00)
[2022-10-31] MEDS ORDERED: PANTOPRAZOLE SODIUM 40 MG VIAL ONE (06:35)
[2022-10-31] MEDS ORDERED: LACTATED RINGERS SOLUTION 1,000 ML/1,000 ML INFUS.BAG IV SCH ×3 (08:30→23:30)
[2022-10-31] MEDS ORDERED: PANTOPRAZOLE SODIUM 80 MG in SODIUM CHLORIDE 100 ML IVPB SCH (09:00)
[2022-10-31] MEDS ORDERED: ALBUTEROL SO4 HFA INHALER IH PRN (10:30)
[2022-10-31] MEDS ORDERED: CYCLOBENZAPRINE HCL 5 MG TABLET PO PRN (10:30)
[2022-10-31] MEDS: INSULIN SLIDING SCALE (NOVOLOG) 1 VIAL SQ SCH ×3 (11:29→21:46)
[2022-10-31 12:02] LABS: BASO % 0.4 % (0-2.0); EOS % 0.1 % (0-4.5); HEMATOCRIT 25.5 % (32.4-45.2); HEMOGLOBIN 8.8 GM/dL (10.7-15.3); LYMPH % 10.4 % (8-40); MCH 31.2 pg (25.7-33.7); MCHC 34.5 g/dl (32.0-36.0); MEAN CELL VOLUME 90.5 fl (80-96); MEAN PLT VOLUME 7.9 fl (7.5-11.1); MONO % 5.6 % (3.8-10.2); NEUT % 83.5 % (42.8-82.8); PLATELET COUNT 309 10^3/uL (134-434); RBC 2.82 M/mm3 (3.60-5.2); RDW 13.2 % (11.6-15.6); WHITE BLOOD COUNT 18.8 K/mm3 (4.0-10.0)
[2022-10-31 12:19] LABS: POTASSIUM 4.2 mmol/L (3.5-5.1)
[2022-10-31 12:22] LABS: ALBUMIN 2.8 g/dl (3.4-5.0); BLOOD UREA NITROGEN 26.6 mg/dL (7-18)
[2022-10-31 12:25] LABS: CREATININE 0.6 mg/dL (0.55-1.3)
[2022-10-31 12:26] LABS: TOT PROT 5.5 g/dl (6.4-8.2)
[2022-10-31 12:27] LABS: BILIRUBIN,TOTAL 0.7 mg/dL (0.2-1)
[2022-10-31 16:03] VITALS: BMI 33.5
[2022-10-31] MEDS: PREGABALIN 75 MG CAPSULE PO SCH (21:45)
[2022-10-31] MEDS: ZOLPIDEM TARTRATE 5 MG TABLET PO SCH (21:45)
[2022-10-31] MEDS: MONTELUKAST NA 10 MG TABLET PO SCH (21:45)
[2022-10-31] MEDS: CALCIUM 500MG/VIT-D 200 UNITS COMBO TABLET (FP) PO SCH (21:46)
[2022-10-31] MEDS: HYDROXYCHLOROQUINE SO4 200 MG TABLET (FP) PO SCH (21:46)
[2022-10-31] MEDS ORDERED: PATIENT'S OWN MEDICATION (NON-FORMULARY) (Azelastine Hcl [Azelastine Hcl] 137 MCG/0.137 ML NS SCH (22:00)
[2022-11-01] MEDS: INSULIN SLIDING SCALE (NOVOLOG) 1 VIAL SQ SCH ×4 (06:14→21:28)
[2022-11-01 08:00] LABS: HEMOGLOBIN 7.6 GM/dL (10.7-15.3); MCH 31.4 pg (25.7-33.7); MCHC 34.6 g/dl (32.0-36.0); MEAN CELL VOLUME 90.8 fl (80-96); MEAN PLT VOLUME 7.9 fl (7.5-11.1); PLATELET COUNT 279 10^3/uL (134-434); RBC 2.42 M/mm3 (3.60-5.2); RDW 14.5 % (11.6-15.6); WHITE BLOOD COUNT 11.1 K/mm3 (4.0-10.0)
[2022-11-01 08:32] LABS: POTASSIUM 3.9 mmol/L (3.5-5.1)
[2022-11-01 08:34] LABS: ALBUMIN 2.9 g/dl (3.4-5.0); CALCIUM 8.3 mg/dL (8.5-10.1)
[2022-11-01 08:35] LABS: BLOOD UREA NITROGEN 14.1 mg/dL (7-18); MAGNESIUM 2.2 mg/dL (1.8-2.4)
[2022-11-01 08:37] LABS: CREATININE 0.7 mg/dL (0.55-1.3); PHOSPHOROUS 4.4 mg/dL (2.5-4.9)
[2022-11-01 08:39] LABS: BILIRUBIN,TOTAL 0.5 mg/dL (0.2-1); TOT PROT 5.6 g/dl (6.4-8.2)
[2022-11-01 08:41] LABS: CHOLESTEROL 103 mg/dL (50-200)
[2022-11-01 08:42] LABS: LDL CHOLESTEROL (ONLY SJRH) 49 mg/dL (5-100)
[2022-11-01 08:45] LABS: HDL CHOLESTEROL 39 mg/dL (40-60)
[2022-11-01] MEDS: PREGABALIN 75 MG CAPSULE PO SCH ×3 (09:53→21:45)
[2022-11-01] MEDS: CYANOCOBALAMIN 1,000 MCG TABLET (FP) PO SCH (09:53)
[2022-11-01] MEDS: MULTIVITAMINS (DAILY MVI) TABLET (FP) PO SCH (09:54)
[2022-11-01] MEDS: CALCIUM 500MG/VIT-D 200 UNITS COMBO TABLET (FP) PO SCH ×2 (09:54→21:29)
[2022-11-01] MEDS: VITAMIN B COMPLEX W/C COMBO TABLET (FP) PO SCH (09:54)
[2022-11-01] MEDS: HYDROXYCHLOROQUINE SO4 200 MG TABLET (FP) PO SCH ×3 (09:54→21:45)
[2022-11-01] MEDS ORDERED: MAGNESIUM 200 MG PO SCH (10:00)
[2022-11-01] MEDS ORDERED: ESCITALOPRAM OXALATE 10 MG TABLET PO SCH (10:00)
[2022-11-01] MEDS: LOSARTAN POTASSIUM 50 MG TABLET PO SCH (10:24)
[2022-11-01] MEDS: LACTATED RINGERS SOLUTION 1,000 ML/1,000 ML INFUS.BAG IV SCH (12:43)
[2022-11-01] MEDS: PANTOPRAZOLE SODIUM 40 MG VIAL IVPUSH SCH ×2 (12:55→21:29)
[2022-11-01] MEDS: MOMETASONE FUROATE 220 MCG/IH INHALER IH SCH (21:28)
[2022-11-01] MEDS: MONTELUKAST NA 10 MG TABLET PO SCH (21:29)
[2022-11-01] MEDS: ZOLPIDEM TARTRATE 5 MG TABLET PO SCH (22:55)
[2022-11-02] MEDS: LACTATED RINGERS SOLUTION 1,000 ML/1,000 ML INFUS.BAG IV SCH ×2 (03:51→12:18)
[2022-11-02] MEDS: INSULIN SLIDING SCALE (NOVOLOG) 1 VIAL SQ SCH ×4 (06:18→22:37)
[2022-11-02] MEDS: CYANOCOBALAMIN 1,000 MCG TABLET (FP) PO SCH (09:25)
[2022-11-02] MEDS: HYDROXYCHLOROQUINE SO4 200 MG TABLET (FP) PO SCH ×2 (09:25→22:41)
[2022-11-02] MEDS: PANTOPRAZOLE SODIUM 40 MG VIAL IVPUSH SCH ×2 (09:25→22:41)
[2022-11-02] MEDS: CALCIUM 500MG/VIT-D 200 UNITS COMBO TABLET (FP) PO SCH ×2 (09:26→22:41)
[2022-11-02] MEDS: VITAMIN B COMPLEX W/C COMBO TABLET (FP) PO SCH (09:26)
[2022-11-02 09:33] LABS: BASO % 0.3 % (0-2.0); EOS % 1.2 % (0-4.5); LYMPH % 20.7 % (8-40); MCH 31.4 pg (25.7-33.7); MEAN CELL VOLUME 92.1 fl (80-96); MEAN PLT VOLUME 7.9 fl (7.5-11.1); MONO % 8.7 % (3.8-10.2); NEUT % 69.1 % (42.8-82.8); PLATELET COUNT 284 10^3/uL (134-434); RBC 2.07 M/mm3 (3.60-5.2); RDW 13.7 % (11.6-15.6); WHITE BLOOD COUNT 11.6 K/mm3 (4.0-10.0)
[2022-11-02 09:41] LABS: HEMOGLOBIN 6.5 GM/dL (10.7-15.3)
[2022-11-02] MEDS: PREGABALIN 75 MG CAPSULE PO SCH ×2 (09:41→22:41)
[2022-11-02 10:10] LABS: ALBUMIN 2.8 g/dl (3.4-5.0); CALCIUM 8.2 mg/dL (8.5-10.1)
[2022-11-02 10:11] LABS: BLOOD UREA NITROGEN 9.8 mg/dL (7-18)
[2022-11-02 10:13] LABS: CREATININE 0.7 mg/dL (0.55-1.3)
[2022-11-02 10:15] LABS: BILIRUBIN,TOTAL 0.4 mg/dL (0.2-1); TOT PROT 5.5 g/dl (6.4-8.2)
[2022-11-02] MEDS: LOSARTAN POTASSIUM 50 MG TABLET PO SCH (11:33)
[2022-11-02] MEDS: MULTIVITAMINS (DAILY MVI) TABLET (FP) PO SCH (12:16)
[2022-11-02] MEDS: ACETAMINOPHEN 325 MG TABLET (FP) PO PRN (13:32)
[2022-11-02] MEDS: MONTELUKAST NA 10 MG TABLET PO SCH ×2 (22:41→22:45)
[2022-11-02] MEDS: ZOLPIDEM TARTRATE 5 MG TABLET PO SCH (22:41)
[2022-11-02] MEDS: MOMETASONE FUROATE 220 MCG/IH INHALER IH SCH (22:42)
[2022-11-03] MEDS: INSULIN SLIDING SCALE (NOVOLOG) 1 VIAL SQ SCH ×4 (06:30→21:43)
[2022-11-03] MEDS: CALCIUM 500MG/VIT-D 200 UNITS COMBO TABLET (FP) PO SCH ×2 (09:26→21:43)
[2022-11-03] MEDS: VITAMIN B COMPLEX W/C COMBO TABLET (FP) PO SCH (09:26)
[2022-11-03] MEDS: HYDROXYCHLOROQUINE SO4 200 MG TABLET (FP) PO SCH ×2 (09:26→21:43)
[2022-11-03] MEDS: PREGABALIN 75 MG CAPSULE PO SCH ×2 (09:27→21:43)
[2022-11-03] MEDS: CYANOCOBALAMIN 1,000 MCG TABLET (FP) PO SCH (09:27)
[2022-11-03] MEDS: MULTIVITAMINS (DAILY MVI) TABLET (FP) PO SCH (09:27)
[2022-11-03] MEDS: PANTOPRAZOLE SODIUM 40 MG VIAL IVPUSH SCH ×2 (09:27→21:44)
[2022-11-03] MEDS: ACETAMINOPHEN 325 MG TABLET (FP) PO PRN (11:23)
[2022-11-03 11:37] LABS: BASO % 0.4 % (0-2.0); EOS % 1.1 % (0-4.5); HEMATOCRIT 21.9 % (32.4-45.2); HEMOGLOBIN 7.4 GM/dL (10.7-15.3); LYMPH % 15.4 % (8-40); MCH 30.6 pg (25.7-33.7); MEAN PLT VOLUME 7.5 fl (7.5-11.1); MONO % 7.8 % (3.8-10.2); NEUT % 75.3 % (42.8-82.8); PLATELET COUNT 299 10^3/uL (134-434); RBC 2.43 M/mm3 (3.60-5.2); RDW 15.5 % (11.6-15.6); WHITE BLOOD COUNT 12.9 K/mm3 (4.0-10.0)
[2022-11-03] MEDS: LACTATED RINGERS SOLUTION 1,000 ML/1,000 ML INFUS.BAG IV SCH ×2 (12:43→20:50)
[2022-11-03 14:30] LABS: ALBUMIN 2.8 g/dl (3.4-5.0); BILIRUBIN,TOTAL 0.6 mg/dL (0.2-1); BLOOD UREA NITROGEN 6.7 mg/dL (7-18); CALCIUM 8.5 mg/dL (8.5-10.1); CREATININE 0.8 mg/dL (0.55-1.3); POTASSIUM 4.3 mmol/L (3.5-5.1); TOT PROT 5.5 g/dl (6.4-8.2)
[2022-11-03] MEDS: MOMETASONE FUROATE 220 MCG/IH INHALER IH SCH (21:42)
[2022-11-03] MEDS: MONTELUKAST NA 10 MG TABLET PO SCH (21:44)
[2022-11-03] MEDS: ZOLPIDEM TARTRATE 5 MG TABLET PO SCH (22:59)
[2022-11-04] MEDS: INSULIN SLIDING SCALE (NOVOLOG) 1 VIAL SQ SCH ×4 (07:11→22:33)
[2022-11-04] MEDS: CYANOCOBALAMIN 1,000 MCG TABLET (FP) PO SCH (09:50)
[2022-11-04] MEDS: PREGABALIN 75 MG CAPSULE PO SCH ×2 (09:50→22:33)
[2022-11-04] MEDS: MULTIVITAMINS (DAILY MVI) TABLET (FP) PO SCH (09:50)
[2022-11-04] MEDS: CALCIUM 500MG/VIT-D 200 UNITS COMBO TABLET (FP) PO SCH ×2 (09:51→22:33)
[2022-11-04] MEDS: PANTOPRAZOLE SODIUM 40 MG VIAL IVPUSH SCH ×2 (09:51→22:34)
[2022-11-04] MEDS: HYDROXYCHLOROQUINE SO4 200 MG TABLET (FP) PO SCH ×2 (09:51→22:33)
[2022-11-04] MEDS: VITAMIN B COMPLEX W/C COMBO TABLET (FP) PO SCH (09:51)
[2022-11-04 11:28] LABS: BASO % 0.4 % (0-2.0); HEMATOCRIT 23.5 % (32.4-45.2); HEMOGLOBIN 7.7 GM/dL (10.7-15.3); LYMPH % 13.9 % (8-40); MCH 30.3 pg (25.7-33.7); MCHC 32.8 g/dl (32.0-36.0); MEAN CELL VOLUME 92.6 fl (80-96); MEAN PLT VOLUME 7.4 fl (7.5-11.1); MONO % 6.8 % (3.8-10.2); NEUT % 77.9 % (42.8-82.8); PLATELET COUNT 350 10^3/uL (134-434); RBC 2.53 M/mm3 (3.60-5.2); RDW 15.4 % (11.6-15.6); WHITE BLOOD COUNT 13.6 K/mm3 (4.0-10.0)
[2022-11-04 11:50] LABS: POTASSIUM 3.8 mmol/L (3.5-5.1)
[2022-11-04 11:52] LABS: ALBUMIN 3.1 g/dl (3.4-5.0); CALCIUM 8.5 mg/dL (8.5-10.1)
[2022-11-04 11:53] LABS: BLOOD UREA NITROGEN 7.8 mg/dL (7-18)
[2022-11-04 11:55] LABS: CREATININE 0.8 mg/dL (0.55-1.3)
[2022-11-04 11:57] LABS: TOT PROT 6.1 g/dl (6.4-8.2)
[2022-11-04 11:58] LABS: BILIRUBIN,TOTAL 0.3 mg/dL (0.2-1)
[2022-11-04] MEDS: LACTATED RINGERS SOLUTION 1,000 ML/1,000 ML INFUS.BAG IV SCH (12:00)
[2022-11-04] MEDS: ACETAMINOPHEN 325 MG TABLET (FP) PO PRN (16:08)
[2022-11-04] MEDS ORDERED: INSULIN SLIDING SCALE (NOVOLOG) 1 VIAL SQ ONE (21:04)
[2022-11-04] MEDS: MONTELUKAST NA 10 MG TABLET PO SCH (22:33)
[2022-11-04] MEDS: MOMETASONE FUROATE 220 MCG/IH INHALER IH SCH (22:33)
[2022-11-04] MEDS: ZOLPIDEM TARTRATE 5 MG TABLET PO SCH (22:56)
[2022-11-05] MEDS: INSULIN SLIDING SCALE (NOVOLOG) 1 VIAL SQ SCH ×4 (06:26→21:58)
[2022-11-05] MEDS: MULTIVITAMINS (DAILY MVI) TABLET (FP) PO SCH (10:16)
[2022-11-05] MEDS: HYDROXYCHLOROQUINE SO4 200 MG TABLET (FP) PO SCH ×2 (10:17→21:45)
[2022-11-05] MEDS: CYANOCOBALAMIN 1,000 MCG TABLET (FP) PO SCH (10:17)
[2022-11-05] MEDS: PREGABALIN 75 MG CAPSULE PO SCH ×2 (10:17→21:45)
[2022-11-05] MEDS: CALCIUM 500MG/VIT-D 200 UNITS COMBO TABLET (FP) PO SCH ×2 (10:17→21:44)
[2022-11-05] MEDS: PANTOPRAZOLE SODIUM 40 MG VIAL IVPUSH SCH ×2 (10:18→21:43)
[2022-11-05] MEDS: VITAMIN B COMPLEX W/C COMBO TABLET (FP) PO SCH (10:19)
[2022-11-05 12:00] LABS: BASO % 0.3 % (0-2.0); EOS % 0.8 % (0-4.5); HEMATOCRIT 21.4 % (32.4-45.2); LYMPH % 12.5 % (8-40); MCH 30.2 pg (25.7-33.7); MCHC 32.3 g/dl (32.0-36.0); MEAN CELL VOLUME 93.3 fl (80-96); MEAN PLT VOLUME 7.2 fl (7.5-11.1); MONO % 6.1 % (3.8-10.2); NEUT % 80.3 % (42.8-82.8); PLATELET COUNT 386 10^3/uL (134-434); RDW 15.5 % (11.6-15.6); WHITE BLOOD COUNT 13.4 K/mm3 (4.0-10.0)
[2022-11-05 12:04] LABS: HEMOGLOBIN 6.9 GM/dL (10.7-15.3)
[2022-11-05] MEDS: ACETAMINOPHEN 325 MG TABLET (FP) PO PRN ×2 (13:37→21:44)
[2022-11-05] MEDS: MOMETASONE FUROATE 220 MCG/IH INHALER IH SCH (21:43)
[2022-11-05] MEDS: MONTELUKAST NA 10 MG TABLET PO SCH (21:45)
[2022-11-05] MEDS: ZOLPIDEM TARTRATE 5 MG TABLET PO SCH (21:45)
[2022-11-06] MEDS: INSULIN SLIDING SCALE (NOVOLOG) 1 VIAL SQ SCH ×4 (06:04→22:45)
[2022-11-06] MEDS: PREGABALIN 75 MG CAPSULE PO SCH ×2 (09:33→21:55)
[2022-11-06] MEDS: MULTIVITAMINS (DAILY MVI) TABLET (FP) PO SCH (09:34)
[2022-11-06] MEDS: CYANOCOBALAMIN 1,000 MCG TABLET (FP) PO SCH (09:34)
[2022-11-06] MEDS: PANTOPRAZOLE SODIUM 40 MG VIAL IVPUSH SCH ×2 (09:34→21:55)
[2022-11-06] MEDS: HYDROXYCHLOROQUINE SO4 200 MG TABLET (FP) PO SCH ×2 (09:34→21:56)
[2022-11-06] MEDS: VITAMIN B COMPLEX W/C COMBO TABLET (FP) PO SCH (09:34)
[2022-11-06] MEDS: CALCIUM 500MG/VIT-D 200 UNITS COMBO TABLET (FP) PO SCH ×2 (09:35→21:56)
[2022-11-06 10:41] LABS: BASO % 0.5 % (0-2.0); HEMATOCRIT 26.9 % (32.4-45.2); HEMOGLOBIN 8.8 GM/dL (10.7-15.3); LYMPH % 12.8 % (8-40); MCH 30.5 pg (25.7-33.7); MCHC 32.6 g/dl (32.0-36.0); MEAN CELL VOLUME 93.5 fl (80-96); MEAN PLT VOLUME 7.4 fl (7.5-11.1); MONO % 6.6 % (3.8-10.2); NEUT % 79.1 % (42.8-82.8); PLATELET COUNT 403 10^3/uL (134-434); RBC 2.88 M/mm3 (3.60-5.2); RDW 16.3 % (11.6-15.6); WHITE BLOOD COUNT 14.7 K/mm3 (4.0-10.0)
[2022-11-06 11:03] LABS: POTASSIUM 4.3 mmol/L (3.5-5.1)
[2022-11-06 11:07] LABS: CALCIUM 8.7 mg/dL (8.5-10.1)
[2022-11-06 11:08] LABS: ALBUMIN 3.2 g/dl (3.4-5.0); BLOOD UREA NITROGEN 13.6 mg/dL (7-18)
[2022-11-06 11:11] LABS: CREATININE 0.8 mg/dL (0.55-1.3)
[2022-11-06 11:12] LABS: TOT PROT 6.1 g/dl (6.4-8.2)
[2022-11-06 13:00] LABS: BASO % 0.5 % (0-2.0); EOS % 0.8 % (0-4.5); HEMATOCRIT 25.9 % (32.4-45.2); HEMOGLOBIN 8.3 GM/dL (10.7-15.3); LYMPH % 14.8 % (8-40); MCH 30.4 pg (25.7-33.7); MEAN CELL VOLUME 94.9 fl (80-96); MEAN PLT VOLUME 7.8 fl (7.5-11.1); MONO % 7.2 % (3.8-10.2); NEUT % 76.7 % (42.8-82.8); PLATELET COUNT 401 10^3/uL (134-434); RBC 2.73 M/mm3 (3.60-5.2); RDW 15.9 % (11.6-15.6)
[2022-11-06] MEDS ORDERED: BISACODYL 5 MG TABLET.DR (FP) PO ONE (16:00)
[2022-11-06] MEDS ORDERED: PEG 3350/NA SULF BICARB CL/KCL 4000 ML SOLN.RECON PO ONE (17:00)
[2022-11-06] MEDS: ZOLPIDEM TARTRATE 5 MG TABLET PO SCH (21:55)
[2022-11-06] MEDS: MONTELUKAST NA 10 MG TABLET PO SCH (21:56)
[2022-11-06] MEDS: MOMETASONE FUROATE 220 MCG/IH INHALER IH SCH (21:57)
[2022-11-07] MEDS: INSULIN SLIDING SCALE (NOVOLOG) 1 VIAL SQ SCH ×2 (07:30→12:01)
[2022-11-07] MEDS: PREGABALIN 75 MG CAPSULE PO SCH (10:53)
[2022-11-07] MEDS: PANTOPRAZOLE SODIUM 40 MG VIAL IVPUSH SCH (10:53)
[2022-11-07] MEDS: CYANOCOBALAMIN 1,000 MCG TABLET (FP) PO SCH (10:53)
[2022-11-07] MEDS: MULTIVITAMINS (DAILY MVI) TABLET (FP) PO SCH (10:53)
[2022-11-07] MEDS: HYDROXYCHLOROQUINE SO4 200 MG TABLET (FP) PO SCH (10:55)
[2022-11-07] MEDS: VITAMIN B COMPLEX W/C COMBO TABLET (FP) PO SCH (10:55)
[2022-11-07] MEDS: CALCIUM 500MG/VIT-D 200 UNITS COMBO TABLET (FP) PO SCH (10:55)
[2022-11-07 11:30] VITALS: RESP 18
[2022-11-07 13:36] LABS: BASO % 0.4 % (0-2.0); EOS % 1.3 % (0-4.5); HEMATOCRIT 26.2 % (32.4-45.2); HEMOGLOBIN 8.6 GM/dL (10.7-15.3); LYMPH % 14.6 % (8-40); MCH 31.2 pg (25.7-33.7); MCHC 32.9 g/dl (32.0-36.0); MEAN CELL VOLUME 94.9 fl (80-96); MEAN PLT VOLUME 7.8 fl (7.5-11.1); MONO % 7.4 % (3.8-10.2); NEUT % 76.3 % (42.8-82.8); PLATELET COUNT 402 10^3/uL (134-434); RBC 2.76 M/mm3 (3.60-5.2); RDW 15.3 % (11.6-15.6); WHITE BLOOD COUNT 10.5 K/mm3 (4.0-10.0)
[2022-11-07 13:51] LABS: POTASSIUM 4.2 mmol/L (3.5-5.1)
[2022-11-07 13:54] LABS: INR 1.03 (0.83-1.09); PROTHROMBIN TIME (PATIENT) 11.9 SEC (9.7-13.0)
[2022-11-07 14:00] LABS: CALCIUM 8.8 mg/dL (8.5-10.1)
[2022-11-07 14:01] LABS: ALBUMIN 3.1 g/dl (3.4-5.0); BLOOD UREA NITROGEN 6.5 mg/dL (7-18)
[2022-11-07 14:04] LABS: CREATININE 0.8 mg/dL (0.55-1.3)
[2022-11-07 14:06] LABS: BILIRUBIN,TOTAL 0.7 mg/dL (0.2-1); TOT PROT 6.1 g/dl (6.4-8.2)
[2022-11-07 15:00] VITALS: BP 116/52; PULSE 72; TEMP 97.8
== END 2022-11-07 16:16 | disposition home or self-care (01) | DRG 379 ==
LOC: JER 02:32 → JERBED 03:01 → UNDOADMOB 03:01 → JERBED 08:34 → J5S 14:46
PROVIDERS: ADMIT Student in an Organized Health Care Education/Training Program
PROC: 0DB68ZX Excision of Stomach, Via Natural or Artificial Opening Endoscopic, Diagnostic (ICD-10-PCS; 2022-10-31)
PROC: 0DJD8ZZ Inspection of Lower Intestinal Tract, Via Natural or Artificial Opening Endoscopic (ICD-10-PCS; 2022-10-31)
PROC: 30233N1 Transfusion of Nonautologous Red Blood Cells into Peripheral Vein, Percutaneous Approach (ICD-10-PCS; 2022-10-31)
PROC: 0DJD8ZZ Inspection of Lower Intestinal Tract, Via Natural or Artificial Opening Endoscopic (ICD-10-PCS; principal; 2022-11-07 10:00)
PROC: 0DBK8ZX Excision of Ascending Colon, Via Natural or Artificial Opening Endoscopic, Diagnostic (ICD-10-PCS; 2022-11-07 10:00)
DX: K57.31 Diverticulosis of large intestine without perforation or abscess with bleeding (principal); N18.9 Chronic kidney disease, unspecified; D64.9 Anemia, unspecified; E11.9 Type 2 diabetes mellitus without complications; I10 Essential (primary) hypertension; E78.5 Hyperlipidemia, unspecified; I12.9 Hypertensive chronic kidney disease with stage 1 through stage 4 chronic kidney disease, or unspecified chronic kidney disease; K64.8 Other hemorrhoids; K63.5 Polyp of colon; K21.9 Gastro-esophageal reflux disease without esophagitis
CPT/HCPCS: 0241U-QW; 36415; 36430; 71045-TC-FY; 74174-TC; 80053; 80061; 82272; 82962; 83036; 83605; 83690; 83735; 84100; 84484; 85025; 85027; 85610; 85730; 86850; 86900; 86901; 86922; 88305-TC; 93005; 93010; 93306-TC; 97116-GP; 97162-GP; 99285-25; P9038; P9058